=== PATIENT | male | born 1990 | race Caucasian/White ===

== ENCOUNTER 2017-01-23 00:05 | Inpatient (IN) | payer BC, OTHER ==
[~2017-01-23] VITALS: Ht 180.3 cm; Wt 69.0 kg
--- NOTE | 2017-01-23 00:24 | EMERGENCY ROOM VISIT NOTE ---
History Report prepared by Jerome: Demond Quintana Under the Supervision of: Dr. Delvin Martinez M.D. First contact with patient: 00:09 Chief Complaint: MENTAL HEALTH EVALUATION Stated Complaint: Suicide Attempt History of Present Illness The patient is a 26 year old male who presents to the Emergency Room for a mental health evaluation. The patient's roommate called the ambulance when he found a note that he had left for him. In the note, the patient stated that he had been having thoughts of committing suicide recently. He was then found severely sedated. Per the patient, he had taken 6 or 8 Benadryl pills and then drank an entire bottle of wine. He had a "bad day with a lot of tough things" that instead of trying to overcome, he tried to forget about them. He took the Benadryl with the wine to fall asleep and not have to think about all of things he had to do. He denies taking any other substances that he can remember. This occurred 6 hours ago. He denies any nausea or abdominal pain. He has a past medical history of depression and anxiety. He has cut his wrists in the past. He is on Escitalopram 20 mg PO from a psychiatrist. He has never been treated as an inpatient for his mental health. Source of History: patient Onset: 6 hours ago Position: other (global) Symptom Intensity: moderate Quality: other (Possible suicide attempt) Timing: constant Associated Symptoms: No abdominal pain, No nausea Review of Systems See HPI for pertinent positives & negatives. A total of 10 systems reviewed and were otherwise negative. Past Medical & Surgical Medical Problems: (1) Anxiety (2) Depression Family History Patient reports no known family medical history. Social History Smoking Status: Never Smoker Smokeless Tobacco Use: No Alcohol Use: occasionally Marital Status: single Housing Status: lives with roommate Occupation Status: student Current/Historical Medications Scheduled Escitalopram (Lexapro), 15 MG PO DAILY Omeprazole Magnesium (Prilosec Otc), 20 MG PO DAILY Scheduled PRN Lisdexamfetamine Dimesylate (Vyvanse), 20 MG PO DAILY PRN for Depression Zaleplon (Sonata), 10 MG PO HS PRN for Sleep Allergies Coded Allergies: Amoxicillin (Verified Allergy, Severe, ANAPHYLAXIS, 01/23/17) Clavulanic Acid (Verified Allergy, Severe, ANAPHYLAXIS, 01/23/17) Penicillins (Verified Allergy, Severe, ANAPHYLAXIS, 01/23/17) Physical Exam Vital Signs Date Time Temp Pulse Resp B/P Pulse Ox O2 Delivery O2 Flow Rate FiO2 01/23/17 02:16 70 12 97/56 96 Room Air 01/23/17 00:06 37.1 85 16 125/85 98 Room Air Physical Exam GENERAL: Patient is moderately intoxicated appearing and in no acute distress. Smells of alcohol. HEENT: No acute trauma, normocephalic atraumatic, mucous membranes moist, no nasal congestion, no scleral icterus. NECK: No stridor, no adenopathy, no meningismus, trachea is midline. LUNGS: No dyspnea. Clear to auscultation and equal bilaterally. No wheeze, no rhonchi. HEART: Regular rate and rhythm. No murmurs, rubs, gallops appreciated. ABDOMEN: Soft, nontender, bowel sounds positive, no masses appreciated, no peritonitis. BACK: No midline tenderness, no CVA tenderness EXTREMITIES: Normal motion all extremities, no cyanosis, no edema. Old scars on left forearm from previous cutting. NEUROLOGIC: Alert and oriented, no acute motor or sensory deficits, no focal weakness, cranial nerves grossly intact. SKIN: No rash, no jaundice, no diaphoresis. PSYCH: Mildly distant, intoxicated, admits depression and suicidal ideation. Denies it was a suicide attempt. Medical Decision & Procedures Laboratory Results 01/22/17 23:30 Red Blood Count 5.14, Mean Corpuscular Volume 83.3, Mean Corpuscular Hemoglobin 30.7, Mean Corpuscular Hemoglobin Concent 36.9, Mean Platelet Volume 10.0, Neutrophils (%) (Auto) 38.5, Lymphocytes (%) (Auto) 44.4, Monocytes (%) (Auto) 6.8, Eosinophils (%) (Auto) 9.5, Basophils (%) (Auto) 0.5, Neutrophils # (Auto) 1.42, Lymphocytes # (Auto) 1.64, Monocytes # (Auto) 0.25, Eosinophils # (Auto) 0.35, Basophils # (Auto) 0.02 01/22/17 23:30 Test 01/22/17 23:30 01/23/17 00:50 01/23/17 01:10 White Blood Count 3.69 K/uL (4.8-10.8) Red Blood Count 5.14 M/uL (4.7-6.1) Hemoglobin 15.8 g/dL (14.0-18.0) Hematocrit 42.8 % (42-52) Mean Corpuscular Volume 83.3 fL (80-100) Mean Corpuscular Hemoglobin 30.7 pg (25-34) Mean Corpuscular Hemoglobin Concent 36.9 g/dl (32-36) Platelet Count 267 K/uL (130-400) Mean Platelet Volume 10.0 fL (7.4-10.4) Neutrophils (%) (Auto) 38.5 % Lymphocytes (%) (Auto) 44.4 % Monocytes (%) (Auto) 6.8 % Eosinophils (%) (Auto) 9.5 % Basophils (%) (Auto) 0.5 % Neutrophils # (Auto) 1.42 K/uL (1.4-6.5) Lymphocytes # (Auto) 1.64 K/uL (1.2-3.4) Monocytes # (Auto) 0.25 K/uL (0.11-0.59) Eosinophils # (Auto) 0.35 K/uL (0-0.5) Basophils # (Auto) 0.02 K/uL (0-0.2) RDW Standard Deviation 35.8 fL (36.4-46.3) RDW Coefficient of Variation 11.8 % (11.5-14.5) Immature Granulocyte % (Auto) 0.3 % Immature Granulocyte # (Auto) 0.01 K/uL (0.00-0.02) Anion Gap 9.0 mmol/L (3-11) Est Creatinine Clear Calc Drug Dose 111.2 ml/min Estimated GFR () 121.6 Estimated GFR (Non- 104.9 BUN/Creatinine Ratio 10.9 (10-20) Calcium Level 8.9 mg/dl (8.5-10.1) Total Bilirubin 0.7 mg/dl (0.2-1) Aspartate Amino Transf (AST/SGOT) 16 U/L (15-37) Alanine Aminotransferase (ALT/SGPT) 26 U/L (12-78) Alkaline Phosphatase 70 U/L (45-117) Total Protein 8.0 gm/dl (6.4-8.2) Albumin 4.6 gm/dl (3.4-5.0) Globulin 3.4 gm/dl (2.5-4.0) Albumin/Globulin Ratio 1.4 (0.9-2) Thyroid Stimulating Hormone (TSH) 1.920 uIu/ml (0.300-4.500) Salicylates Level < 1.7 mg/dl (2.8-20) Acetaminophen Level < 2 ug/ml (10-30) Urine Color YELLOW Urine Appearance CLEAR (CLEAR) Urine pH 7.5 (4.5-7.5) Urine Specific [place] 1.012 (1.000-1.030) Urine Protein NEG (NEG) Urine Glucose (UA) NEG (NEG) Urine Ketones NEG (NEG) Urine Occult Blood NEG (NEG) Urine Nitrite NEG (NEG) Urine Bilirubin NEG (NEG) Urine Urobilinogen NEG (NEG) Urine Leukocyte Esterase NEG (NEG) Urine WBC (Auto) 0 /hpf (0-5) Urine RBC (Auto) 0-4 /hpf (0-4) Urine Hyaline Casts (Auto) 0 /lpf (0-5) Urine Epithelial Cells (Auto) 0-5 /lpf (0-5) Urine Bacteria (Auto) NEG (NEG) Urine Opiates Screen NEG (NEG) Urine Methadone, Qualitative NEG (NEG) Urine Barbiturates NEG (NEG) Urine Phencyclidine (PCP) Level NEG (NEG) Ur Amphetamine/Methamphetamine NEG (NEG) MDMA (Ecstasy) Screen NEG (NEG) Urine Benzodiazepines Screen NEG (NEG) Urine Cocaine Metabolite NEG (NEG) Urine Marijuana (THC) NEG (NEG) Ethyl Alcohol mg/dL 109.0 mg/dl (0-3) Laboratory results as reviewed by me. ECG Indication: toxicologic Rate (beats per minute): 81 Rhythm: normal sinus Findings: no acute ischemic change, no ectopy, other (QTC 443) ED Course 0009: The patient was evaluated in room A7. A complete history and physical exam was performed. 0159: [address] [place] [address] is coming to evaluate the patient. 0400: The patient was accepted to [address] [place] [address] for further admission and treatment. Medical Decision Differential: Mood Disorder, Overdose, Infectious, Electrolyte Abnormality, Cardiac, Hepatic, Endocrine, Toxicologic, Neurologic, amongst other pathologies entertained. 26 yr old male with clearly quite severe depression that has been worsening now with arrival post overdose of benadryl and etoh. Admits this was not suicide attempt, but that he has been thinking about killing himself regularly recently and admits to a plan. Tylenol/Robin negative. Labs look good. EKG normal. Is not acutely anticholinergic. He is medically clear and sober after being in ED a few hours. Evaluated by [facility] who will bring him in for further evaluation and treatment. Impression Primary Impression: Suicidal ideation Additional Impressions: Medication overdose Alcohol intoxication Scribe Attestation The scribe's documentation has been prepared under my direction and personally reviewed by me in its entirety. I confirm that the note above accurately reflects all work, treatment, procedures, and medical decision making performed by me. Departure Information Dispostion Mental Health Acute Care Referrals [facility] (PCP) Patient Instructions My [facility] Problem Qualifiers Additional Impressions: Medication overdose Encounter type: initial encounter Injury intent: undetermined intent Qualified Codes: T50.904A - Poisoning by unspecified drugs, medicaments and biological substances, undetermined, initial encounter Alcohol intoxication Complication of substance-induced condition: uncomplicated Qualified Codes: F10.920 - Alcohol use, unspecified with intoxication, uncomplicated
[2017-01-23 00:26] LABS: BASO % 0.5 %; BASO ABS # 0.02 K/uL (0-0.2); COMPLETE YES; EOS % 9.5 %; HEMATOCRIT 42.8 % (42-52); IG% 0.3 %; LYMPH % 44.4 %; LYMPH ABS # 1.64 K/uL (1.2-3.4); MEAN CELL VOLUME 83.3 fL (80-100); MEAN CORPUSCULAR HEMOGLOBIN 30.7 pg (25-34); MEAN CORPUSCULAR HGB CONC 36.9 g/dl (32-36); MONO % 6.8 %; NEUT % 38.5 %; PLATELET COUNT 267 K/uL (130-400); RED BLOOD COUNT 5.14 M/uL (4.7-6.1); WHITE BLOOD COUNT 3.69 K/uL (4.8-10.8)
[2017-01-23 00:47] LABS: BUN/CREATININE RATIO 10.9 (10-20); CALCIUM 8.9 mg/dl (8.5-10.1)
[2017-01-23 00:58] LABS: ACETAMINOPHEN < 2 ug/ml (10-30); ALB/GLOB RATIO 1.4 (0.9-2); THYROID STIMULATING HORMONE 1.92 uIu/ml (0.300-4.500)
[2017-01-23 01:17] LABS: URINE APPEARANCE CLEAR (CLEAR); URINE BILIRUBIN NEG (NEG); URINE COLOR YELLOW; URINE EPITHELIAL CELL AUTO 0-5 /lpf (0-5); URINE NITRITE NEG (NEG); URINE PH 7.5 (4.5-7.5); URINE SPECIFIC GRAVITY 1.012 (1.000-1.030); UROBILINOGEN NEG (NEG); ZZUR CULT IF INDIC CLEAN CATCH NO
[2017-01-23 01:24] LABS: MANUAL MICROSCOPIC REQUIRED? NO; REVIEW REQ? NO
[2017-01-23 01:34] LABS: BENZODIAZEPINE, URINE NEG (NEG); COCAINE,URINE NEG (NEG); PHENCYCLIDINE, URINE NEG (NEG)
[2017-01-23] MEDS ORDERED: OMEP20TA14 PO (01:36)
[2017-01-23] MEDS ORDERED: ESCI10TA17 PO (01:36)
[2017-01-23] MEDS ORDERED: LISD20CA PO (01:36)
[2017-01-23] MEDS ORDERED: SNT/10 PO (01:36)
[2017-01-23] MEDS ORDERED: NURSING VERBAL MED ORDER ONE (03:30)
[2017-01-23] MEDS ORDERED: SODIUM CHLORIDE 0.65% NA SOLN 45 ML (OCEAN) PRN (03:45)
[2017-01-23] MEDS ORDERED: hydrOXYzine HCL 25 MG TAB PO PRN ×2 (03:45)
[2017-01-23] MEDS ORDERED: ALUMINUM/MAGNESIUM SUSP 30 ML UDC PO PRN (03:45)
[2017-01-23] MEDS ORDERED: ACETAMINOPHEN 325 MG TAB PO PRN (03:45)
[2017-01-23] MEDS ORDERED: BISMUTH SUBSALICYLATE PER ML OMNICELL CHARGE PO PRN (03:45)
[2017-01-23] MEDS ORDERED: MAGNESIUM HYDROXIDE SUSP 30 ML UDC PO PRN (03:45)
[2017-01-23 03:47] VITALS: O2SAT 99
[2017-01-23 03:52] VITALS: BP 125/85; PULSE 85; TEMP 37.1; Ht 180.3 cm; Wt 69.0 kg
[2017-01-23] MEDS ORDERED: ESCITALOPRAM OXALATE 10 MG TAB PO ONE (12:15)
[2017-01-23] MEDS ORDERED: VENLAFAXINE HCL XR 75 MG CAPXR PO ONE (12:15)
--- NOTE | 2017-01-23 12:46 | Psychiatric History & Physical ---
History Date of Service January 23, 2017. Identifying Data Juvencio Gomez is a 26-year-old male who was brought to the emergency room by EMS after having been found by his roommate obtunded following a toxic ingestion of Benadryl and wine. He left an extensive note. The patient is admitted voluntarily with a backup 302 petition her statement Chief Complaint "I had a very emotionally stressful day.". 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 Walton for depression and anxiety. 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 This meant that he could not continue in the PhD program but could use his work toward a master' s program. He has about half of his thesis completed however is been procrastinating finishing that as well. He is not sure that he wants to continue in his chosen field and feels a great deal of stress about completing the thesis in a timely fashion. His lease is up the end of August, and without having a viable work position were completed thesis, he will likely need to return home to [place]. 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 The patient indicates he is not fluent on the phone and did not find success at obtaining these numbers. 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 At one point his wire rope fabrication supervisor had told him to misrepresent the reasons for the need for the facts numbers, however this felt "fake", and "disingenuous". The whole thing "rub me the wrong way" and he found himself irritable and frustrated. At the end of his workday he got in his car, and had what sounds like a panic attack with crying, screaming, and hyperventilating. He describes feeling "frustration, anxiety, really down on myself". He felt like he had "some sort of mental breakdown" and when he reached his apartment he was so shaken that he wanted to "check out". He knew that he was making a bad decision but decided to take a handful of Benadryl with a bottle of wine in order not to feel anymore. He says that he had no intent to but simply wanted to be able to sleep and forget. He left an extensive note, 3-1/2 pages talking about his emotional despair and existential problems about life, feeling conflicted about life's expectations and his own desires. In the note he acknowledges that he did not think the overdose would kill him but just make him sleep. Fortunately, his roommate came home, found him poorly responsive and read the note, summoned EMS to have him brought to the emergency room. The patient admits that his mood has been depressed and anxious. He has been having suicidal thoughts over the course of the last month. His sleep has been "all over the place" with some difficulty falling asleep. Sunday he only slept 3 hours, staying awake worrying about completing his thesis. He has recently had a series of medical afflictions resulting in nausea and vomiting. He had an EGD which did confirm some stomach inflammation and his PCP suggested that he had a viral gastroenteritis. He was placed on Prilosec with some improvement to the nausea and vomiting. He reports that he has struggled with chronic anxiety even back when he was in school, middle school and high school. He said his earliest memory of having a friend was the friend calling him "high stramada". He has acute episodes of anxiety that include about elevated heart rate, shallow difficulty breathing, tremors and clenching muscles. He had been working in therapy trying to understand his motivations and passions in life. At some point he became aware that his efforts to do well over the years were more to avoid negative outcomes then they were because he had a passion to do well. He denies ever having had any auditory or visual hallucinations. He denies any struggles with anger. He does engage in self- injurious behaviors, specifically cutting with a single edged razor on the left outer aspect of his wrist. He is first started this in September and his last episode was in October. His close friend Phi has since taken his razor so that he cannot cut and told him to use his electric razor. He denies any discrete episodes of euphoric mood, sleeplessness or pleasure seeking behaviors that would be congruent with a bipolar disorder. Past Psychiatric History Current OP Treatment: psychiatrist Prior OP Treatment: therapist Prior Psych Hospitalizations: none Access to a Gun: No Suicide Attempts: No Past Medication Trials Prozac, Lexapro both made him feel numb "like a ghost" and had sexual side effects to Lexapro. Vyvance as an alternative to an SSRI, Ativan Past Medical/Surgical History History of Concussion/Seizure: No (1) Asthma Allergies Allergies: Coded Allergies: Amoxicillin (Verified Allergy, Severe, ANAPHYLAXIS, 01/23/17) Clavulanic Acid (Verified Allergy, Severe, ANAPHYLAXIS, 01/23/17) Penicillins (Verified Allergy, Severe, ANAPHYLAXIS, 01/23/17) Home Medications Scheduled Escitalopram (Lexapro), 15 MG PO DAILY Omeprazole Magnesium (Prilosec Otc), 20 MG PO DAILY Scheduled PRN Lisdexamfetamine Dimesylate (Vyvanse), 20 MG PO DAILY PRN for Depression Zaleplon (Sonata), 10 MG PO HS PRN for Sleep Family History Patient reports no known family medical history. History of Suicide: No History of Substance Abuse: Yes (maternal grandfather and several maternal uncles with alcohol problems) Psychiatric History: Yes (mother has anxiety and has been on an SSRI, brother is described as having "intense emotions") Alcohol Use Alcohol Use In Past 12 Months: Yes (BRYN of 109 ) AUDIT Total Score: 2 Smoking Use Smoking Status: Never Smoker Substance History The patient admits to smoking marijuana about once every other week. He also uses Kratom occasionally, twice per week, which he says calms him before bedtime. Personal History Lives in: [employer] in an apartment with a roommate. Family is from [place] Childhood: Was raised by both mother and father. Mother is a senior it business analyst in the school district, father owns his own business. 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 science engineering) Work History: Part-time for a [employer] Relationship History: never Children: none Legal History: none Psychological Trauma History: Other (none) Review of Systems Constitutional: other (fluctuating energy) Eyes: denies: as stated in HPI, blurred vision, discharge, double vision, eye pain, itching, no symptoms, other, photophobia, redness, tearing, visual changes ENT: denies: dental pain, ear discharge, ear pain, epistaxis, gum swelling, loss of hearing, mouth pain, mouth swelling, nasal congestion, nasal pain, no symptoms reported, other, rhinorrhea, see HPI, sore throat, stidor, throat swelling, tinnitus Cardiovascular: denies: chest pain, chest pressure, chest tightness, diaphoresis, no symptoms reported, other, palpitations, see HPI, syncope Respiratory: reports: short of breath (with anxiety) Gastrointestinal: nausea, vomiting, other (recent workup by EGD, told he had viral gastroenteritis) Genitourinary - Male: denies: amenorrhea, impotence, no symptoms, other, penile discharge, penile itching, rash, see HPI, testicular pain, testicular swelling Musculoskeletal: denies no symptoms reported, denies see HPI, denies back pain , denies gout, denies joint pain, denies joint swelling, denies muscle pain, denies muscle stiffness, denies neck pain, denies other Integumentary: denies no symptoms reported, denies see HPI, denies change in color, denies change in hair/nails, denies dryness, denies lesions, denies lumps , denies rash, denies other Neurologic: denies: dizziness, focal weakness, general weakness, headache, lethargy, memory loss, no symptoms, numbness, other, paresthesias, pre-existing deficit, see HPI, seizure, tics, tingling, tremors, vertigo Endocrine: denies: as stated in HPI, cold intolerance, goiter, hair changes, heat intolerance, no symptoms, other, polydipsia, polyuria, skin changes Hematologic / Lymphatic: denies: abnormal clotting, adenopathy, anemia, as stated in HPI, easy bleeding, easy bruising, gums bleeding, no symptoms, other, petechiae Examination Physical Examination Exam performed by Dr. Martinez in the emergency room has been reviewed and accepted for our medical clearance here on the unit Vital Signs Vital Signs Past 12 Hours Date Time Temp Pulse Resp B/P Pulse Ox O2 Delivery O2 Flow Rate FiO2 01/23/17 07:00 01/23/17 03:52 37.1 85 16 125/85 01/23/17 03:47 66 20 109/65 99 Room Air 01/23/17 02:16 70 12 97/56 96 Room Air Laboratory Results Last 24 Hours Test 01/22/17 23:30 01/23/17 00:50 01/23/17 01:10 White Blood Count 3.69 K/uL Red Blood Count 5.14 M/uL Hemoglobin 15.8 g/dL Hematocrit 42.8 % Mean Corpuscular Volume 83.3 fL Mean Corpuscular Hemoglobin 30.7 pg Mean Corpuscular Hemoglobin Concent 36.9 g/dl Platelet Count 267 K/uL Mean Platelet Volume 10.0 fL Neutrophils (%) (Auto) 38.5 % Lymphocytes (%) (Auto) 44.4 % Monocytes (%) (Auto) 6.8 % Eosinophils (%) (Auto) 9.5 % Basophils (%) (Auto) 0.5 % Neutrophils # (Auto) 1.42 K/uL Lymphocytes # (Auto) 1.64 K/uL Monocytes # (Auto) 0.25 K/uL Eosinophils # (Auto) 0.35 K/uL Basophils # (Auto) 0.02 K/uL RDW Standard Deviation 35.8 fL RDW Coefficient of Variation 11.8 % Immature Granulocyte % (Auto) 0.3 % Immature Granulocyte # (Auto) 0.01 K/uL Sodium Level 148 mmol/L Potassium Level 4.0 mmol/L Chloride Level 111 mmol/L Carbon Dioxide Level 28 mmol/L Anion Gap 9.0 mmol/L Blood Urea Nitrogen 11 mg/dl Creatinine 1.00 mg/dl Est Creatinine Clear Calc Drug Dose 111.2 ml/min Estimated GFR () 121.6 Estimated GFR (Non- 104.9 BUN/Creatinine Ratio 10.9 Random Glucose 83 mg/dl Calcium Level 8.9 mg/dl Total Bilirubin 0.7 mg/dl Aspartate Amino Transf (AST/SGOT) 16 U/L Alanine Aminotransferase (ALT/SGPT) 26 U/L Alkaline Phosphatase 70 U/L Total Protein 8.0 gm/dl Albumin 4.6 gm/dl Globulin 3.4 gm/dl Albumin/Globulin Ratio 1.4 Thyroid Stimulating Hormone (TSH) 1.920 uIu/ml Salicylates Level < 1.7 mg/dl Acetaminophen Level < 2 ug/ml Urine Color YELLOW Urine Appearance CLEAR Urine pH 7.5 Urine Specific [place] 1.012 Urine Protein NEG Urine Glucose (UA) NEG Urine Ketones NEG Urine Occult Blood NEG Urine Nitrite NEG Urine Bilirubin NEG Urine Urobilinogen NEG Urine Leukocyte Esterase NEG Urine WBC (Auto) 0 /hpf Urine RBC (Auto) 0-4 /hpf Urine Hyaline Casts (Auto) 0 /lpf Urine Epithelial Cells (Auto) 0-5 /lpf Urine Bacteria (Auto) NEG Urine Opiates Screen NEG Urine Methadone, Qualitative NEG Urine Barbiturates NEG Urine Phencyclidine (PCP) Level NEG Ur Amphetamine/Methamphetamine NEG MDMA (Ecstasy) Screen NEG Urine Benzodiazepines Screen NEG Urine Cocaine Metabolite NEG Urine Marijuana (THC) NEG Ethyl Alcohol mg/dL 109.0 mg/dl Mental Examination During interview pt is: alert and oriented, cooperative Appearance: appropriately dressed, appropriately groomed Eye contact is: fair Motor behavior is: steady gait & station, no abnormal motor movements Affect: mood congruent, depressed, flat Mood is: depressed, anxious Thought process: circumstantial Thought content: reality based without delusions Suicidal thought are: denied (despite a long note that for all intents and purposes appears to be a suicide note), Plan: present (took an overdose of Benadryl and alcohol) Homicidal thoughts are: denied Hallucinations: denies auditory, denies visual Cognition: memory grossly intact, attention grossly intact, language grossly intact Intelligence estimated to be: average Insight: impaired Judgement: impaired Impression / Recommendations Impression 26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 He left a lengthy note that appears to be a suicide note although denies that he had intent to , just to sleep and "checkout". He describes a pattern of chronic anxiety that is recently heightened during the exacerbation of his depression. He has had 2 trials of SSRIs, on which he has felt emotionally blunted and had sexual side effects. We have discussed a treatment plan that includes converting him from Lexapro to Effexor XR. Risks, benefits and alternatives reviewed and accepted including the black box warning for increase in depression or suicidal thinking in young people. He would like to proceed. We will reduce his Lexapro to 10 mg , give him Effexor XR 37.5 mg today, increasing to 75 mg tomorrow. We will coordinate care with his outpatient psychiatrist. He likely will only be in town until the end of March and so we'll need to determine whether he should have therapy here before returning to [place] and will need providers once he moves home. I have advised him to give up substances of all kind for the foreseeable future so that it does not impact his mood. I have also suggested that he stopped using 5 and even on a when necessary basis due to concerns for worsening anxiety. He is amenable to treatment. At this time, he requires inpatient mental health treatment due to the severity of his condition and the risk for self-harm if discharged. Inventory Assets Strengths: Intelligence, family support Needs: Abstain from all substances Risk Factors Assessment Male: Yes : Yes /single/: Yes Higher / Fall in social status: No Access to guns: No Health problems: No Mental Health Diagnoses: Yes Substance use disorders: Yes Previous attempt: No Previous psychiatric stay: No Hopelessness: Yes Smoker: No Protective Factors Assessment : No Responsible for young children: No Employed: Yes Stable relationships: Yes Supportive family: Yes Good rapport with provider: Yes Recommendations (1) Major depressive disorder, recurrent severe without psychotic features 01/23 -Reduce Lexapro to 10 mg daily and start Effexor XR 37.5 mg today and 75 mg starting tomorrow -Will use when necessary Vistaril for sleep and anxiety -Obtain outpatient records from Dr. Walton -The patient may only be here until the end of March and will then be moving home to [place]. Will need to determine providers both locally and in [place] -Every 15 minute checks for safety -Encourage participation in group and individual counseling -Family meeting. Mother is coming from [place] today (2) ASPEN (generalized anxiety disorder) 01/23 -Recommend discontinue Vyvanse due to concerns for activating his anxiety -Cross taper from Lexapro to Effexor as above -Assist the patient to learn and utilize mindfulness, relaxation and deep breathing exercises - (3) Cannabis abuse 01/23 -Recommend abstinence Has been reviewed with Dr. Joceline Brice CPT Code Initial Hospital Care: [id number]
[2017-01-23] MEDS ORDERED: VENLAFAXINE HCL XR 37.5 MG CAPXR PO ONE (13:00)
[2017-01-24 06:59] VITALS: BP_SYST 113; BP_DIAS 67; BP_DIAS 71; PULSE 57; PULSE 79; TEMP 36.8
[2017-01-24] MEDS: PANTOprazole SOD 40 MG TAB PO SCH (09:47)
[2017-01-24] MEDS: ESCITALOPRAM OXALATE 10 MG TAB PO SCH (09:48)
[2017-01-24] MEDS: VENLAFAXINE HCL XR 75 MG CAPXR PO SCH (09:48)
[2017-01-24] MEDS ORDERED: SNT/10 PO (12:51)
--- NOTE | 2017-01-24 12:58 | Psychiatric Progress Notes ---
Progress Note Date of Service January 24, 2017. Interval History Juvencio Gomez is a 26-year-old male who was brought to the emergency room by EMS after having been found by his roommate obtunded following an overdose on Benadryl and wine. He left an extensive note indicating that he wanted to end his life. The patient is admitted voluntarily with a backup 302 petition's statement. Chief Complaint Sorry, I'm a little bit flustered right now." Subjective Patient was seen & assessed interval progress reviewed with Treatment Team. Staff report he has been talking with staff about his struggles with the meaning of his life and difficulty getting over a breakup in 2013. He attended unit programming and participated well. His roommate visited, and it appeared to go well. Today, he states that he is feeling upset after reviewing his treatment plan, stating that "there is a certain level of condescension, there is a plan in place, and you're going to stick to this plan because they know best." He also complains about some of the unit programming, stating he knows that his readings of his mood are being used to present data about how useful treatment is here, and doesn't like that. He further complains that "no one wants to have a dialogue." He was repeatedly encouraged to voice his thoughts about what would be helpful to work on while he is here, and admitted that "I don't know, I haven't fully thought about what that dialogue would be." He denies any medication side effects or issues with his cross taper. Mood is "kind of average, not particularly elated or excited, not bad, just kind of flat , a general feeling of tiredness and exhaustion." Sleep remains disturbed, with delayed onset. He took hydroxyzine last night, and says it was only partially effective. He wants to know if he can get Sonata or Ativan for sleep. Sleep Information Total Hours of Sleep: 5.50 Meal Information Percent of Breakfast Consumed: 100 Percent of Lunch Consumed: 100 Percent of Dinner Consumed: 100 Mental Status Exam During interview pt is: alert and oriented, cooperative Appearance: appropriately dressed, appropriately groomed Eye contact is: fair Motor behavior is: steady gait & station, no abnormal motor movements Speech: normal in rate, rhythm & volume Affect: mood congruent, depressed, irritable Mood is: depressed, irritable Thought process: circumstantial Thought content: reality based without delusions Suicidal thought are: denied (despite a 4 page suicide note), Plan: present ( took an overdose of Benadryl and alcohol) Homicidal thoughts are: denied Hallucinations: denies auditory, denies visual Cognition: memory grossly intact, attention grossly intact, language grossly intact Intelligence estimated to be: average Insight: impaired Judgement: impaired Impression 26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 He left a lengthy note that appears to be a suicide note although denies that he had intent to , just to sleep and "checkout". He describes a pattern of chronic anxiety that is recently heightened during the exacerbation of his depression. He has had 2 trials of SSRIs, on which he has felt emotionally blunted and had sexual side effects. We have discussed a treatment plan that includes converting him from Lexapro to Effexor XR. Risks, benefits and alternatives reviewed and accepted including the black box warning for increase in depression or suicidal thinking in young people. He would like to proceed. We will reduce his Lexapro to 10 mg , give him Effexor XR 37.5 mg today, increasing to 75 mg tomorrow. We will coordinate care with his outpatient psychiatrist. He likely will only be in town until the end of March and so we'll need to determine whether he should have therapy here before returning to [place] and will need providers once he moves home. I have advised him to give up substances of all kind for the foreseeable future so that it does not impact his mood. I have also suggested that he stopped using 5 and even on a when necessary basis due to concerns for worsening anxiety. He is amenable to treatment. At this time, he requires inpatient mental health treatment due to the severity of his condition and the risk for self-harm if discharged. Plan (1) Major depressive disorder, recurrent severe without psychotic features 01/23 -Reduce Lexapro to 10 mg daily and start Effexor XR 37.5 mg today and 75 mg starting tomorrow -Will use when necessary Vistaril for sleep and anxiety -Obtain outpatient records from Dr. Walton -The patient may only be here until the end of March and will then be moving home to [place]. Will need to determine providers both locally and in [place] -Every 15 minute checks for safety -Encourage participation in group and individual counseling -Family meeting. Mother is coming from [place] today 01/24 -Family meeting today. -Continue venlafaxine XR 75 mg daily while tapering off escitalopram. -Awaiting records from Dr. Walton -Increase hydroxyzine to 100 mg daily at bedtime as needed for sleep, and add Sonata 5 mg daily at bedtime when necessary as a backup option. Would only get this in the hospital, due to the risk of overdose or misuse. (2) ASPEN (generalized anxiety disorder) 01/23 -Recommend discontinue Vyvanse due to concerns for activating his anxiety -Cross taper from Lexapro to Effexor as above -Assist the patient to learn and utilize mindfulness, relaxation and deep breathing exercises - (3) Cannabis abuse 01/23 -Recommend abstinence Has been reviewed with Dr. Joceline Brice Discharge / Aftercare Planning Primary Care Physician: Name: [facility] Therapist: Name: Dr Conti Visit Code E&M Code: 49456 Inventory Assets Strengths: Intelligence, family support Needs: Abstain from all substances Risk Factors Assessment Male: Yes : Yes /single/: Yes Higher / Fall in social status: No Health problems: No Mental Health Diagnoses: Yes Substance use disorders: Yes Previous attempt: No Previous psychiatric stay: No Hopelessness: Yes Smoker: No Protective Factors Assessment : No Responsible for young children: No Employed: Yes Stable relationships: Yes Supportive family: Yes Good rapport with provider: Yes Data Vital Signs Last 24 Hrs: Date Time Temp Pulse Resp B/P Pulse Ox O2 Delivery O2 Flow Rate FiO2 01/24/17 06:59 36.8 57 16 113/71 79 113/67 Meds Administered Last 24 Hrs: Meds Administered (Past 24Hrs) Medications (Trade) Dose Ordered Sig/Benito Route Start Time Stop Time Status Last Admin Dose Admin Hydroxyzine HCl (Vistaril Tab) 50 mg HSZ PRN PO 01/23/17 03:45 02/22/17 03:44 01/23/17 21:26 50 MG Escitalopram Oxalate (Lexapro Tab) 10 mg QAM PO 01/24/17 09:00 02/23/17 08:59 01/24/17 09:48 10 MG Escitalopram Oxalate (Lexapro Tab) 10 mg 1215 ONCE PO 01/23/17 12:15 01/23/17 12:41 DC 01/23/17 13:12 10 MG Venlafaxine HCl (effeXOR EXTENDED REL CAP) 75 mg QAM PO 01/24/17 09:00 02/23/17 08:59 01/24/17 09:48 75 MG Pantoprazole Sodium (Protonix Tab) 40 mg DAILY PO 01/24/17 09:00 02/23/17 08:59 01/24/17 09:47 40 MG Venlafaxine HCl (effeXOR EXTENDED REL CAP) 37.5 mg NOW ONCE PO 01/23/17 13:00 01/23/17 13:01 DC 01/23/17 13:00 37.5 MG
[2017-01-24] MEDS ORDERED: ZALEPLON 5 MG CAP PO PRN (13:00)
[2017-01-24] MEDS ORDERED: hydrOXYzine HCL 25 MG TAB PO PRN (22:00)
[2017-01-25 06:59] VITALS: BP_SYST 100; BP_SYST 115; BP_DIAS 66; BP_DIAS 78; PULSE 63; PULSE 71; TEMP 36.8
[2017-01-25] MEDS: PANTOprazole SOD 40 MG TAB PO SCH (09:23)
[2017-01-25] MEDS: ESCITALOPRAM OXALATE 10 MG TAB PO SCH (09:23)
[2017-01-25] MEDS: VENLAFAXINE HCL XR 75 MG CAPXR PO SCH (09:23)
--- NOTE | 2017-01-25 16:25 | Psychiatric Progress Notes ---
Progress Note Date of Service January 25, 2017. Interval History Juvencio Gomez is a 26-year-old male who was brought to the emergency room by EMS after having been found by his roommate obtunded following an overdose on Benadryl and wine. He left an extensive note indicating that he wanted to end his life. The patient is admitted voluntarily with a backup 302 petition's statement. Chief Complaint "Today is a good day.". Subjective Patient was seen & assessed interval progress reviewed with Treatment Team. The patient says that he slept poorly last night, requiring prns of Sonata and Vistaril. He has had a second meeting with his parents today as he felt that he was not very "with it" during his first meeting. He tried to talk with them about his condition and what led up to hospitalization. He felt that he wanted to give his mother some reassurance, since he knows she is a worrier, and hopes that he was successful, but is also aware there is no taking away the fear of almost losing their son. He feels that being in the hospital has been helpful as he has been removed from his stressors and allowed him time to reflect on how he got to this position. 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 He denies any SI today. He had one episode of emesis last evening, but has been having problems with NV prior to admission. He denies diarrhea. Review of Systems Constitutional: No chills, No fatigue, No fever, No problem reported, No sweats , No weakness, No weight loss ENT: No dental problems, No hearing loss, No nasal symptoms, No problem reported, No sore throat, No tinnitus, No trouble swallowing, No unusual epistaxis Respiratory: No cough, No dyspnea at rest, No dyspnea on exertion, No hemoptysis, No problem reported, No shortness of breath, No sputum, No wheezing Cardiovascular: No PND, No chest pain, No claudication, No edema, No orthopnea , No palpitations, No problem reported Abdomen: + vomiting (X 1 last evening) Musculoskeletal: No calf pain, No joint pain, No muscle pain, No problem reported, No swelling Neurologic: No balance problems, No memory loss, No numbness/tingling, No paralysis, No problem reported, No vertigo, No weakness Psychiatric: + anxiety, + depression symptoms, + insomnia Integumentary: No bleeding, No color change, No itch, No new/changing skin lesions, No problem reported, No rash Sleep Information Total Hours of Sleep: 4.00 Meal Information Percent of Breakfast Consumed: 100 Percent of Lunch Consumed: 100 Percent of Dinner Consumed: 90 Mental Status Exam During interview pt is: alert and oriented, cooperative Appearance: appropriately dressed, appropriately groomed Eye contact is: good Motor behavior is: steady gait & station, no abnormal motor movements Speech: normal in rate, rhythm & volume Affect: mood congruent, depressed Mood is: depressed Thought process: circumstantial Thought content: reality based without delusions Suicidal thought are: denied, Plan: denied Homicidal thoughts are: denied Hallucinations: denies auditory, denies visual Cognition: memory grossly intact, attention grossly intact, language grossly intact Intelligence estimated to be: average Insight: impaired Judgement: impaired Impression Is tolerating the cross over from Lexapro to Effexor. Will now DC Lexapro and increase Effexor XR to 150 mg. daily starting tomorrow. Will continue 100 mg. vistaril prn for sleep but if unsuccessful tonight, consider a trial of trazodone. Still working to set up therapy as his psychiatrist will be out of town for the next several weeks. Plan (1) Major depressive disorder, recurrent severe without psychotic features 01/23 -Reduce Lexapro to 10 mg daily and start Effexor XR 37.5 mg today and 75 mg starting tomorrow -Will use when necessary Vistaril for sleep and anxiety -Obtain outpatient records from Dr. Walton -The patient may only be here until the end of March and will then be moving home to [place]. Will need to determine providers both locally and in [place] -Every 15 minute checks for safety -Encourage participation in group and individual counseling -Family meeting. Mother is coming from [place] today 01/24 -Family meeting today. -Continue venlafaxine XR 75 mg daily while tapering off escitalopram. -Awaiting records from Dr. Walton -Increase hydroxyzine to 100 mg daily at bedtime as needed for sleep, and add Sonata 5 mg daily at bedtime when necessary as a backup option. Would only get this in the hospital, due to the risk of overdose or misuse. 01/25 - DC Lexapro - Increase Effexor XR to 150 mg. daily (2) ASPEN (generalized anxiety disorder) 01/23 -Recommend discontinue Vyvanse due to concerns for activating his anxiety -Cross taper from Lexapro to Effexor as above -Assist the patient to learn and utilize mindfulness, relaxation and deep breathing exercises 01/25 - Meds as above - (3) Cannabis abuse 01/23 -Recommend abstinence Has been reviewed with Dr. Joceline Brice Discharge / Aftercare Planning Primary Care Physician: Name: [facility] Therapist: Name: Dr Conti Other: Name of Appointment #1: Dr. Greco (GI) Date of Appointment #1: Feb 15, 2017 Time of Appointment #1: 11:00 Visit Code E&M Code: 03503 Inventory Assets Strengths: Intelligence, family support Needs: Abstain from all substances Risk Factors Assessment Male: Yes : Yes /single/: Yes Higher / Fall in social status: No Health problems: No Mental Health Diagnoses: Yes Substance use disorders: Yes Previous attempt: No Previous psychiatric stay: No Hopelessness: Yes Smoker: No Protective Factors Assessment : No Responsible for young children: No Employed: Yes Stable relationships: Yes Supportive family: Yes Good rapport with provider: Yes Data Vital Signs Last 24 Hrs: Date Time Temp Pulse Resp B/P Pulse Ox O2 Delivery O2 Flow Rate FiO2 01/25/17 06:59 36.8 63 16 100/66 71 115/78 Meds Administered Last 24 Hrs: Meds Administered (Past 24Hrs) Medications (Trade) Dose Ordered Sig/Benito Route Start Time Stop Time Status Last Admin Dose Admin Escitalopram Oxalate (Lexapro Tab) 10 mg QAM PO 01/24/17 09:00 02/23/17 08:59 01/25/17 09:23 10 MG Venlafaxine HCl (effeXOR EXTENDED REL CAP) 75 mg QAM PO 01/24/17 09:00 02/23/17 08:59 01/25/17 09:23 75 MG Pantoprazole Sodium (Protonix Tab) 40 mg DAILY PO 01/24/17 09:00 02/23/17 08:59 01/25/17 09:23 40 MG Hydroxyzine HCl (Vistaril Tab) 100 mg HSZ PRN PO 01/24/17 22:00 02/23/17 21:59 01/25/17 00:46 100 MG Zaleplon (Sonata Cap) 5 mg HSZ PRN PO 01/24/17 13:00 02/23/17 12:59 01/24/17 22:51 5 MG Lab Results Last 24 Hrs: 01/22/17 23:30 Red Blood Count 5.14, Mean Corpuscular Volume 83.3, Mean Corpuscular Hemoglobin 30.7, Mean Corpuscular Hemoglobin Concent 36.9, Mean Platelet Volume 10.0, Neutrophils (%) (Auto) 38.5, Lymphocytes (%) (Auto) 44.4, Monocytes (%) (Auto) 6.8, Eosinophils (%) (Auto) 9.5, Basophils (%) (Auto) 0.5, Neutrophils # (Auto) 1.42, Lymphocytes # (Auto) 1.64, Monocytes # (Auto) 0.25, Eosinophils # (Auto) 0.35, Basophils # (Auto) 0.02 01/22/17 23:30 Test 01/22/17 23:30 01/23/17 00:50 01/23/17 01:10 White Blood Count 3.69 K/uL (4.8-10.8) Red Blood Count 5.14 M/uL (4.7-6.1) Hemoglobin 15.8 g/dL (14.0-18.0) Hematocrit 42.8 % (42-52) Mean Corpuscular Volume 83.3 fL (80-100) Mean Corpuscular Hemoglobin 30.7 pg (25-34) Mean Corpuscular Hemoglobin Concent 36.9 g/dl (32-36) Platelet Count 267 K/uL (130-400) Mean Platelet Volume 10.0 fL (7.4-10.4) Neutrophils (%) (Auto) 38.5 % Lymphocytes (%) (Auto) 44.4 % Monocytes (%) (Auto) 6.8 % Eosinophils (%) (Auto) 9.5 % Basophils (%) (Auto) 0.5 % Neutrophils # (Auto) 1.42 K/uL (1.4-6.5) Lymphocytes # (Auto) 1.64 K/uL (1.2-3.4) Monocytes # (Auto) 0.25 K/uL (0.11-0.59) Eosinophils # (Auto) 0.35 K/uL (0-0.5) Basophils # (Auto) 0.02 K/uL (0-0.2) RDW Standard Deviation 35.8 fL (36.4-46.3) RDW Coefficient of Variation 11.8 % (11.5-14.5) Immature Granulocyte % (Auto) 0.3 % Immature Granulocyte # (Auto) 0.01 K/uL (0.00-0.02) Anion Gap 9.0 mmol/L (3-11) Est Creatinine Clear Calc Drug Dose 111.2 ml/min Estimated GFR () 121.6 Estimated GFR (Non- 104.9 BUN/Creatinine Ratio 10.9 (10-20) Calcium Level 8.9 mg/dl (8.5-10.1) Total Bilirubin 0.7 mg/dl (0.2-1) Aspartate Amino Transf (AST/SGOT) 16 U/L (15-37) Alanine Aminotransferase (ALT/SGPT) 26 U/L (12-78) Alkaline Phosphatase 70 U/L (45-117) Total Protein 8.0 gm/dl (6.4-8.2) Albumin 4.6 gm/dl (3.4-5.0) Globulin 3.4 gm/dl (2.5-4.0) Albumin/Globulin Ratio 1.4 (0.9-2) Thyroid Stimulating Hormone (TSH) 1.920 uIu/ml (0.300-4.500) Salicylates Level < 1.7 mg/dl (2.8-20) Acetaminophen Level < 2 ug/ml (10-30) Urine Color YELLOW Urine Appearance CLEAR (CLEAR) Urine pH 7.5 (4.5-7.5) Urine Specific Morgan 1.012 (1.000-1.030) Urine Protein NEG (NEG) Urine Glucose (UA) NEG (NEG) Urine Ketones NEG (NEG) Urine Occult Blood NEG (NEG) Urine Nitrite NEG (NEG) Urine Bilirubin NEG (NEG) Urine Urobilinogen NEG (NEG) Urine Leukocyte Esterase NEG (NEG) Urine WBC (Auto) 0 /hpf (0-5) Urine RBC (Auto) 0-4 /hpf (0-4) Urine Hyaline Casts (Auto) 0 /lpf (0-5) Urine Epithelial Cells (Auto) 0-5 /lpf (0-5) Urine Bacteria (Auto) NEG (NEG) Urine Opiates Screen NEG (NEG) Urine Methadone, Qualitative NEG (NEG) Urine Barbiturates NEG (NEG) Urine Phencyclidine (PCP) Level NEG (NEG) Ur Amphetamine/Methamphetamine NEG (NEG) MDMA (Ecstasy) Screen NEG (NEG) Urine Benzodiazepines Screen NEG (NEG) Urine Cocaine Metabolite NEG (NEG) Urine Marijuana (THC) NEG (NEG) Ethyl Alcohol mg/dL 109.0 mg/dl (0-3)
[2017-01-26 07:01] VITALS: BP_SYST 113; BP_SYST 131; BP_DIAS 71; BP_DIAS 82; PULSE 60; PULSE 73; TEMP 36.7
[2017-01-26] MEDS: PANTOprazole SOD 40 MG TAB PO SCH (08:53)
[2017-01-26] MEDS ORDERED: VENLAFAXINE HCL XR 150 MG CAPXR PO SCH (09:00)
[2017-01-26] MEDS ORDERED: EFFSR150 PO (09:46)
--- NOTE | 2017-01-26 09:57 | Discharge Instructions ---
Discharge Information Report Includes Report will include the: Discharge Instructions & Summary Admission Admission Date / Time: January 23, 2017 at 03:31 Reason for Admission: Depession Nos Discharge Discharge Diagnosis / Problem: Depression Condition at Discharge: Good Discharge Goals Goal(s): Decrease discomfort, Improve disease control, Prevent Disease Progression Activity Recommendations Activity Limitations: resume your previous activity . Instructions / Follow-Up Instructions / Follow-Up . SPECIAL CARE INSTRUCTIONS: 1. Follow through with your scheduled aftercare appointments. If unable to keep an appointment, please call to reschedule. 2. Take your medication only as prescribed. Medication should not be changed or stopped without the approval of your doctor. In the event of worsening symptoms or concerns about side effects, contact your doctor immediately. 3. Utilize new healthy coping skills, anger management skills, and stress management skills learned during your hospitalization. Journal feelings and process them with a support person. Identify stressors or situations that may result in relapse, deterioration or inappropriate behaviors and develop a plan to deal with those issues. 4. If your coping skills are ineffective and you are in crisis, contact your outpatient providers for direction. If unable to reach your providers, please call the CAN HELP LINE AT or go to the closest Emergency Room. 5. Avoid alcohol and un-prescribed drugs. 6. You have been provided with the Mental Health Advance Directives Pamphlet for your review. AFTERCARE APPOINTMENTS: * Please call your insurance company prior to your scheduled appointment to confirm your aftercare providers are covered. Take your insurance information to your appointments. . Discharge / Aftercare Planning Primary Care Physician: Name: [facility] Phone Number: [phone] Appointment Notes: as needed Psychiatrist: Name: Dr Walton Therapist: Name Of Therapist: [facility] at [facility] Nelson Date of Appointment: January 30, 2017 Time of Appointment: 407 Other: Name of Appointment #1: Dr. Greco (GI) Date of Appointment #1: Feb 15, 2017 Time of Appointment #1: 11:00 . Follow-Up Care Plan for Follow-Up Care: The patient will return to his OP psychiatrist, and will see a therapist next week. Current Hospital Diet Patient's current hospital diet: Regular Diet Discharge Diet Recommended Diet: Regular Diet Procedures Procedures Performed: No Pending Studies Pending Studies at Discharge: No Medical Emergencies . Who to Call and When: Medical Emergencies: For questions or emergencies related to your hospital stay, please contact the Inpatient Behavioral Health Unit at [phone]. A monomer recovery supervisor is on-call 26/03 for the Behavioral Health Unit for emergencies At any time you feel your situation is an emergency, you may also call 911 immediately. . Non-Emergent Contact Non-Emergency issues call your: Psychiatrist, Therapist Advance Directives Existing Advance Directive: No Do You Have an Existing Mental: No Existing Living Will: No Existing Power of Electronic Equipment Trades Worker: No Advance Directives Info Given: To Pt/S.O. Advance Directives Reason: Declines as Mental Health Visit. 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 Walton for depression and anxiety. 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 This meant that he could not continue in the PhD program but could use his work toward a master' s program. He has about half of his thesis completed however is been procrastinating finishing that as well. He is not sure that he wants to continue in his chosen field and feels a great deal of stress about completing the thesis in a timely fashion. His lease is up the end of August, and without having a viable work position were completed thesis, he will likely need to return home to [place]. 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 The patient indicates he is not fluent on the phone and did not find success at obtaining these numbers. 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 At one point his sandblaster supervisor had told him to misrepresent the reasons for the need for the facts numbers, however this felt "fake", and "disingenuous". The whole thing "rub me the wrong way" and he found himself irritable and frustrated. At the end of his workday he got in his car, and had what sounds like a panic attack with crying, screaming, and hyperventilating. He describes feeling "frustration, anxiety, really down on myself". He felt like he had "some sort of mental breakdown" and when he reached his apartment he was so shaken that he wanted to "check out". He knew that he was making a bad decision but decided to take a handful of Benadryl with a bottle of wine in order not to feel anymore. He says that he had no intent to but simply wanted to be able to sleep and forget. He left an extensive note, 3-1/2 pages talking about his emotional despair and existential problems about life, feeling conflicted about life's expectations and his own desires. In the note he acknowledges that he did not think the overdose would kill him but just make him sleep. Fortunately, his roommate came home, found him poorly responsive and read the note, summoned EMS to have him brought to the emergency room. The patient admits that his mood has been depressed and anxious. He has been having suicidal thoughts over the course of the last month. His sleep has been "all over the place" with some difficulty falling asleep. Sunday he only slept 3 hours, staying awake worrying about completing his thesis. He has recently had a series of medical afflictions resulting in nausea and vomiting. He had an EGD which did confirm some stomach inflammation and his PCP suggested that he had a viral gastroenteritis. He was placed on Prilosec with some improvement to the nausea and vomiting. He reports that he has struggled with chronic anxiety even back when he was in school, middle school and high school. He said his earliest memory of having a friend was the friend calling him "high strung". He has acute episodes of anxiety that include about elevated heart rate, shallow difficulty breathing, tremors and clenching muscles. He had been working in therapy trying to understand his motivations and passions in life. At some point he became aware that his efforts to do well over the years were more to avoid negative outcomes then they were because he had a passion to do well. He denies ever having had any auditory or visual hallucinations. He denies any struggles with anger. He does engage in self- injurious behaviors, specifically cutting with a single edged razor on the left outer aspect of his wrist. He is first started this in September and his last episode was in October. His close friend Phi has since taken his razor so that he cannot cut and told him to use his electric razor. He denies any discrete episodes of euphoric mood, sleeplessness or pleasure seeking behaviors that would be congruent with a bipolar disorder. Hospital Course (1) Major depressive disorder, recurrent severe without psychotic features 01/23 -Reduce Lexapro to 10 mg daily and start Effexor XR 37.5 mg today and 75 mg starting tomorrow -Will use when necessary Vistaril for sleep and anxiety -Obtain outpatient records from Dr. Walton -The patient may only be here until the end of March and will then be moving home to [place]. Will need to determine providers both locally and in [place] -Every 15 minute checks for safety -Encourage participation in group and individual counseling -Family meeting. Mother is coming from [place] today 01/24 -Family meeting today. -Continue venlafaxine XR 75 mg daily while tapering off escitalopram. -Awaiting records from Dr. Walton -Increase hydroxyzine to 100 mg daily at bedtime as needed for sleep, and add Sonata 5 mg daily at bedtime when necessary as a backup option. Would only get this in the hospital, due to the risk of overdose or misuse. 01/25 - DC Lexapro - Increase Effexor XR to 150 mg. daily (2) ASPEN (generalized anxiety disorder) 01/23 -Recommend discontinue Vyvanse due to concerns for activating his anxiety -Cross taper from Lexapro to Effexor as above -Assist the patient to learn and utilize mindfulness, relaxation and deep breathing exercises 01/25 - Meds as above - (3) Cannabis abuse 01/23 -Recommend abstinence Risk Factors Assessment Male: Yes : Yes /single/: Yes Higher / Fall in social status: No Health problems: No Mental Health Diagnoses: Yes Substance use disorders: Yes Previous attempt: No Previous psychiatric stay: No Hopelessness: Yes Smoker: No Protective Factors Assessment : No Responsible for young children: No Employed: Yes Stable relationships: Yes Supportive family: Yes Good rapport with provider: Yes Day of Discharge Assessment COURSE OF HOSPITALIZATION: During the patient's 3 day stay, he was tapered off of Lexapro and onto Effexor XR 150 mg daily. He had had 2 trials of an SSRI with which he had side effects including sexual side effects and affect if blunting. His primary stressors included that of school, not finishing his master's thesis in a timely fashion and struggling with some existential problems related to society's expectations of him. He processed these extensively during his stay in order to gain better perspective. He had 2 family meetings with his parents who came down from [place] to support him. He found this to be very helpful. His father will be staying for the extended weekend. The patient talked extensively and individual counseling about his depression, and not reaching out to friends prior to admission. He continued to insist that the overdose of medications and alcohol that led to admission, was not specifically designed and his life, but to allow him to sleep and take a break from his depression. Nonetheless, there was a 4 page note that very much appeared to be suicidal in nature. He worked on a safety plan during his stay and is now prepared to reach out to friends for support when he is feeling depressed. He had not done this prior to admission feeling that he was a burden to everyone. He also talked with his department during his stay and was reassured that they would give him a online health and fitness coach to get him through the remainder of writing his thesis. He will remain in [employer] at least through the end of March when his lease expires. At that point he may return to [place] with his parents. He will continue to see his outpatient psychiatrist and will also return to see a therapist, Nelson, at [facility]. DAY OF DISCHARGE ASSESSMENT: The patient feels significantly improved over admission. He would like to be able to go home in order to spend time with his father and go hiking. His mood is good, he continues to deny suicidal thinking and feels ready to safely discharge. Today he is casually and appropriately dressed and groomed. Gait and station are within normal limits. Eye contact is good. Affect is smiling. Speech is of normal rate volume and tone. Thoughts are organized, goal-directed, and without evidence of thought disorder. Recent and remote memory is intact per conversation. Intelligence is estimated to be average. Insight and judgment are improved over admission. Laboratory Test 01/22/17 23:30 01/23/17 00:50 01/23/17 01:10 White Blood Count 3.69 Red Blood Count 5.14 Hemoglobin 15.8 Hematocrit 42.8 Mean Corpuscular Volume 83.3 Mean Corpuscular Hemoglobin 30.7 Mean Corpuscular Hemoglobin Concent 36.9 Platelet Count 267 Mean Platelet Volume 10.0 Neutrophils (%) (Auto) 38.5 Lymphocytes (%) (Auto) 44.4 Monocytes (%) (Auto) 6.8 Eosinophils (%) (Auto) 9.5 Basophils (%) (Auto) 0.5 Neutrophils # (Auto) 1.42 Lymphocytes # (Auto) 1.64 Monocytes # (Auto) 0.25 Eosinophils # (Auto) 0.35 Basophils # (Auto) 0.02 RDW Standard Deviation 35.8 RDW Coefficient of Variation 11.8 Immature Granulocyte % (Auto) 0.3 Immature Granulocyte # (Auto) 0.01 Sodium Level 148 Potassium Level 4.0 Chloride Level 111 Carbon Dioxide Level 28 Anion Gap 9.0 Blood Urea Nitrogen 11 Creatinine 1.00 Est Creatinine Clear Calc Drug Dose 111.2 Estimated GFR () 121.6 Estimated GFR (Non- 104.9 BUN/Creatinine Ratio 10.9 Random Glucose 83 Calcium Level 8.9 Total Bilirubin 0.7 Aspartate Amino Transferase (AST) 16 Alanine Aminotransferase (ALT) 26 Alkaline Phosphatase 70 Total Protein 8.0 Albumin 4.6 Globulin 3.4 Albumin/Globulin Ratio 1.4 Thyroid Stimulating Hormone (TSH) 1.920 Salicylates Level < 1.7 Acetaminophen Level < 2 Urine Color YELLOW Urine Appearance CLEAR Urine pH 7.5 Urine Specific [place] 1.012 Urine Protein NEG Urine Glucose (UA) NEG Urine Ketones NEG Urine Occult Blood NEG Urine Nitrite NEG Urine Bilirubin NEG Urine Urobilinogen NEG Urine Leukocyte Esterase NEG Urine WBC (Auto) 0 Urine RBC (Auto) 0-4 Urine Hyaline Casts (Auto) 0 Urine Epithelial Cells (Auto) 0-5 Urine Bacteria (Auto) NEG Urine Opiates Screen NEG Urine Methadone, Qualitative NEG Urine Barbiturates NEG Urine Phencyclidine (PCP) Level NEG Ur Amphetamine/Methamphetamine NEG MDMA (Ecstasy) Screen NEG Urine Benzodiazepines Screen NEG Urine Cocaine Metabolite NEG Urine Marijuana (THC) NEG Ethyl Alcohol mg/dL 109.0 Total Time Total Time Spent (min): Greater than 30 minutes Total Time Included: examination of the patient, discharge planning, medication reconciliation, communication with other providers Tobacco Cessation at Discharge Smoking Status: Never Smoker FDA approved Prescription: non-smoker
== END 2017-01-26 13:45 | disposition home or self-care (01) | DRG 885 ==
LOC: EDBD 00:05 → C.EDA 00:08 → C.MHU 03:31
PROVIDERS: ADMIT Psychiatry & Neurology Child & Adolescent Psychiatry; ATTEND Psychiatry & Neurology Psychiatry
DX: F33.2 Major depressive disorder, recurrent severe without psychotic features (principal); R45.851 Suicidal ideations; F41.1 Generalized anxiety disorder; F12.10 Cannabis abuse, uncomplicated; T45.0X4A Poisoning by antiallergic and antiemetic drugs, undetermined, initial encounter; T51.94XA Toxic effect of unspecified alcohol, undetermined, initial encounter; Z81.8 Family history of other mental and behavioral disorders; Z87.09 Personal history of other diseases of the respiratory system; Z79.899 Other long term (current) drug therapy